=== PATIENT | male | born 1930 | race Caucasian/White ===

== ENCOUNTER 2018-10-25 12:50 | Outpatient (CLI) | payer MEDICARE, OTHER ==
[~2018-10-25 12:50] MED LIST: ATOR10TA87 PO; CHOL100046 PO; CITA20TA28 PO; DOCU100C40 PO; FLO110IN IH; LISI-600 PO; LORA10TA61 PO; MELA5LIQ PO; MOME17SP NS; MULT-785 PO; OMEG1CAP54 PO; OMEP-84 PO; PSEU-259 PO; TEST60GE TD
== END 2018-10-25 23:59 | disposition home or self-care (01) ==
LOC: RAD 12:50
PROVIDERS: ATTEND Family Medicine
DX: R13.14 Dysphagia, pharyngoesophageal phase (principal); Z53.21 Procedure and treatment not carried out due to patient leaving prior to being seen by health care provider

== ENCOUNTER 2018-11-08 12:34 | Outpatient (CLI) | payer MEDICARE, OTHER ==
[~2018-11-08 12:34] MED LIST changes: +BARIUM SULFATE 340 ML SUSP.RECON***PROCEDURE AREA ONLY**DONT ENTER PO ONE
== END 2018-11-08 23:59 | disposition home or self-care (01) ==
LOC: RAD 12:34
PROVIDERS: ATTEND Family Medicine
DX: R13.12 Dysphagia, oropharyngeal phase (principal); K21.9 Gastro-esophageal reflux disease without esophagitis; I10 Essential (primary) hypertension; J45.909 Unspecified asthma, uncomplicated; Z87.891 Personal history of nicotine dependence
CPT/HCPCS: 74230